=== PATIENT | male | born 1995 | race Caucasian/White ===

== ENCOUNTER 2017-08-05 01:34 | Emergency (ER) | payer OTHER ==
[~2017-08-05 01:34] MED LIST: FLUO-201 PO
--- NOTE | 2017-08-05 01:38 | ER Report ---
History and Physical Time Seen By MD: 01:36 HPI/ROS CHIEF COMPLAINT: Anxiety/panic attack HISTORY OF PRESENT ILLNESS: 21-year-old male presents ambulatory. Patient states she's had a panic attack since 10 PM last night. She's been unable to sleep. Patient used to be on the Prozac. But he ran out. He has failed to follow-up with primary care and get refills. Patient feels irritated since he sustained a shock while working on a car engine from a spark plug. He is afraid that if he goes to sleep. He will not wake up. REVIEW OF SYSTEMS: Respiratory: No cough, no dyspnea. Cardiovascular: No chest pain, no palpitations. Gastrointestinal: No vomiting, no abdominal pain. Musculoskeletal: No back pain. Allergies: Coded Allergies: No Known Drug Allergies (Unverified , 08/05/17) Home Meds Active Scripts Fluoxetine Hcl (PROZAC) 10 Mg Capsule, 10 MG PO QDAY for depression, #30 CAPSULE Prov:GUADALUPE ROBBINS DO 08/05/17 Lorazepam (ATIVAN) 1 Mg Tablet, 1 MG PO Q6-8H Y for ANXIETY, #12 Prov:GUADALUPE ROBBINS DO 08/05/17 Discontinued Reported Medications Fluoxetine Hcl (PROZAC) 10 Mg Capsule, 10 MG PO QDAY, CAPSULE 03/04/17 Reviewed Nurses Notes: Yes Old Medical Records Reviewed: Yes Hx Substance Use Disorder: No Hx Alcohol Use: No Constitutional Vital Sign - Last 24 Hours 08/05/17 08/05/17 08/05/17 08/05/17 01:37 01:37 01:45 02:00 Temp 98.7 Pulse 76 76 67 Resp 17 B/P (MAP) 119/84 (96) 119/84 116/89 (98) 122/92 (102) Pulse Ox 97 97 97 O2 Delivery Room Air Physical Exam General Appearance: The patient is alert, has no immediate need for airway protection and no current signs of toxicity. Vital signs stable, afebrile, pulse ox normal Eyes: Pupils equal and round no injection. Respiratory: Chest is non tender, lungs are clear to auscultation. Cardiac: regular rate and rhythm Gastrointestinal: Abdomen is soft and non tender, no masses, bowel sounds normal. Musculoskeletal: Neck: Neck is supple and non tender. Extremities have full range of motion and are non tender. Skin: No rashes or lesions. DIFFERENTIAL DIAGNOSIS: After history and physical exam differential diagnosis was considered for depression including functional and major depression, situational depression, medication side effect, anxiety, panic attack, drugs and alcohol abuse. Medical Decision Making ED Course/Re-evaluation ED Course Patient was admitted to an examination room. H&P was done. The differential diagnoses was considered. On clinical examination. Patient's feeling very anxious. He is unable to sleep. He has racing thoughts. He does have history of anxiety and panic attack. His 2 previous ER visits were reviewed. Patient was on Prozac before he ran out. We will refill them. He is given Ativan to take at home to help him sleep. He is given a prescription for limited supply of Ativan 1 mg. He is encouraged to follow-up with primary care in [facility]. Decision to Disposition Date: August 05, 2017 Decision to Disposition Time: 01:47 Depart Departure Latest Vital Signs Vital Signs Date Time Temp Pulse Resp B/P (MAP) Pulse Ox O2 Delivery O2 Flow Rate FiO2 08/05/17 02:00 67 122/92 (102) 97 08/05/17 01:37 98.7 17 Room Air Impression: Primary Impression: Panic attack Additional Impression: Anxiety Condition: Improved Disposition: HOME OR SELF-CARE New Scripts Fluoxetine Hcl (PROZAC) 10 Mg Capsule 10 MG PO QDAY for depression, #30 CAPSULE Prov: GUADALUPE ROBBINS DO 08/05/17 Lorazepam (ATIVAN) 1 Mg Tablet 1 MG PO Q6-8H Y for ANXIETY, #12 Prov: GUADALUPE ROBBINS DO 08/05/17 Patient Instructions: Panic Attack (ED) Additional Instructions: Follow-up with your primary care provider within one week Problem Qualifiers GUADALUPE ROBBINS DO August 05, 2017 01:38
[2017-08-05] MEDS ORDERED: LORA-1456 PO (01:49)
[2017-08-05] MEDS ORDERED: FLUO-201 PO (01:50)
[2017-08-05] MEDS ORDERED: LORazepam 1 MG TAB PO ONE (01:55)
[2017-08-05 02:00] VITALS: BP 122/92
== END 2017-08-05 02:08 | disposition home or self-care (01) ==
LOC: ER 01:40
DX: F41.0 Panic disorder [episodic paroxysmal anxiety] (principal); F41.9 Anxiety disorder, unspecified
CPT/HCPCS: 99282